=== PATIENT | male | born 1955 | race Caucasian/White ===

== ENCOUNTER → 2019-07-27 10:43 | Outpatient (BNVA) | payer OTHER, SELFPAY | PROVIDERS: Family Provider Nurse Practitioner Family; PCP Nurse Practitioner Family; Visit Provider Registered Nurse | DX: I10 Essential (primary) hypertension (principal); E11.9 Type 2 diabetes mellitus without complications; B36.0 Pityriasis versicolor; E78.5 Hyperlipidemia, unspecified | CPT/HCPCS: 80053; 80061; 82044; 83036; 85025 ==

== ENCOUNTER → 2020-04-22 09:28 | Outpatient (BNVA) | payer OTHER, SELFPAY | PROVIDERS: Family Provider Nurse Practitioner Family; PCP Nurse Practitioner Family; Visit Provider Registered Nurse | DX: E11.9 Type 2 diabetes mellitus without complications (principal); I10 Essential (primary) hypertension; R46.89 Other symptoms and signs involving appearance and behavior | CPT/HCPCS: 80053; 80061; 83036; 85025 ==

== ENCOUNTER → 2020-07-23 13:15 | Outpatient (BNVA) | payer OTHER, SELFPAY | PROVIDERS: Family Provider Nurse Practitioner Family; PCP Registered Nurse; Visit Provider Registered Nurse | DX: I10 Essential (primary) hypertension (principal) | CPT/HCPCS: 83036 ==

== ENCOUNTER → 2021-07-30 09:40 | Outpatient (BNVA) | payer OTHER, SELFPAY | PROVIDERS: Family Provider Nurse Practitioner Family; PCP Registered Nurse; Visit Provider Registered Nurse | DX: E11.9 Type 2 diabetes mellitus without complications (principal); I10 Essential (primary) hypertension; E78.5 Hyperlipidemia, unspecified; Z12.11 Encounter for screening for malignant neoplasm of colon | CPT/HCPCS: 80053; 80061; 83036; 85025 ==

== ENCOUNTER 2021-10-09 06:55 | Day surgery (SDC) | payer OTHER, SELFPAY ==
[2021-10-09 07:20] VITALS: BP 165/98; PULSE 75; RESP 18; TEMP 36.6; O2SAT 97; BMI 32.2
[2021-10-09] MEDS: sodium chloride 0.9% 1,000 ML 30 ML IV (07:27)
--- NOTE | 2021-10-09 08:13 | ANES.PREANE2 ---
Pre-Anesthetic Assessment Height/Weight: Height 1.7 m Weight 93.44 kg Temp Pulse Resp BP Pulse Ox 97.8 F 75 18 165/98 97 10/09/21 07:20 10/09/21 07:20 10/09/21 07:20 10/09/21 07:20 10/09/21 07:20 Operation Date: 10/09/21 08:45 Proposed Procedures p Colonoscopy 44926,Z12.11(Not Applicable) - Frank Galaviz DO Familial anesthetic complications: none Was Beta Kelsey taken within 24 hours: N/A Was Clonidine taken within 24 hours: N/A Last intake: Intake Last Liquid Date 10/08/21 Last Liquid Time 22:00 Last Solid Date 10/07/21 Last Solid Time 20:00 Social Alcohol and No tobacco Exam alert, oriented x 3, clear to auscultation bilaterally and regular rate & rhythm Airway Submandibular: within normal limits Cervical ROM: within normal limits Mallampati: Class II CV/HEM Hypertension Metabolic Diabetes Mellitus and Morbid Obesity Anesthetic Plan ASA status: 2 Anesthesia: MAC Medications/Allergies Home Medications Medication Instructions Recorded Confirmed Last Taken Type selenium sulfide 2.5 % lotion 2.3 % TOPICAL .once a week #118 ml 07/27/19 10/09/21 Unknown Rx epinephrine 0.3 mg/0.3 mL 0.3 mg (0.3 mL) IM Q10M PRN #2 ea 10/23/20 10/09/21 Unknown Rx injection, auto-injector (EpiPen 2-Navneet) fenofibrate nanocrystallized 145 145 mg PO DAILY 90 Days #90 tab 07/30/21 10/09/21 Unknown Rx mg tablet (Tricor) lisinopril 20 See Rx Instructions .ROUTE 07/30/21 10/09/21 10/08/21 Rx mg-hydrochlorothiazide 12.5 mg .COMPLEX #90 tab tablet metformin 1,000 mg tablet 1,000 mg PO DAILY 90 Days #90 tab 07/30/21 10/09/21 10/08/21 Rx semaglutide 1 mg/dose (2 mg/1.5 0.5 mg SUBCUT DIRECTED 10/07/21 10/09/21 10/01/21 History mL) subcutaneous pen injector Allergies Allergy/AdvReac Type Severity Reaction Status Date / Time grass pollen Allergy eyes itch/ Verified 10/07/21 12:38 sneezing venom-wasp Allergy swelling Verified 10/07/21 12:38 [facility] Anesthesia Medical History Essential hypertension Non-compliant behavior Type 2 diabetes mellitus without complication Surgical History (Updated 08/27/21 @ 10:20 by Frank Galaviz DO) History of colonoscopy Social History Smoking and tobacco status: never smoked Alcohol intake: current Alcohol intake frequency: 3 or more drinks per day Alcohol type: beer Adopted: No Caregiver/support person: No Lives independently: No Household members: spouse Marital status: Current occupational status: employed Sexually active: Yes Current gender identity: Male Data Anesthesia Cardiac Studies: No Data to Display
--- NOTE | 2021-10-09 09:31 | P.HP_ITS ---
Providers/Chief Complaint Primary Care Provider: TANESHA Barajas Chief Complaint: Need for screening colonoscopy History of Present Illness Inderjit Farrell is a 65 year old male who presents for a screening colonoscopy. He denies any abdominal complaints. His last colonoscopy was 12 years ago and was within normal limits reportedly. This is an updated H&P Review of Systems General: Reports: 10 or more systems reviewed and unremarkable except in HPI and below Medications/Allergies Home Medications Medication Instructions Recorded Confirmed Last Taken Type selenium sulfide 2.5 % lotion 2.3 % TOPICAL .once a week #118 ml 07/27/19 10/09/21 Unknown Rx epinephrine 0.3 mg/0.3 mL 0.3 mg (0.3 mL) IM Q10M PRN #2 ea 10/23/20 10/09/21 Unknown Rx injection, auto-injector (EpiPen 2-Navneet) fenofibrate nanocrystallized 145 145 mg PO DAILY 90 Days #90 tab 07/30/21 10/09/21 Unknown Rx mg tablet (Tricor) lisinopril 20 See Rx Instructions .ROUTE 07/30/21 10/09/21 10/08/21 Rx mg-hydrochlorothiazide 12.5 mg .COMPLEX #90 tab tablet metformin 1,000 mg tablet 1,000 mg PO DAILY 90 Days #90 tab 07/30/21 10/09/21 10/08/21 Rx semaglutide 1 mg/dose (2 mg/1.5 0.5 mg SUBCUT DIRECTED 10/07/21 10/09/21 10/01/21 History mL) subcutaneous pen injector Allergies Allergy/AdvReac Type Severity Reaction Status Date / Time grass pollen Allergy eyes itch/ Verified 10/07/21 12:38 sneezing venom-wasp Allergy swelling Verified 10/07/21 12:38 PFSH Acute PFSH: Medical History Essential hypertension Non-compliant behavior Type 2 diabetes mellitus without complication Surgical History History of colonoscopy Social History Smoking and tobacco status: never smoked Alcohol intake: current Alcohol intake frequency: 3 or more drinks per day Alcohol type: beer Adopted: No Caregiver/support person: No Lives independently: No Household members: spouse Marital status: Current occupational status: employed Sexually active: Yes Current gender identity: Male Vitals/I&O/Wt Last Vital Signs Temp 97.8 F 10/09/21 07:20 Pulse 75 10/09/21 07:20 Resp 18 10/09/21 07:20 BP 165/98 10/09/21 07:20 Pulse Ox 97 10/09/21 07:20 Weight last 48 hrs Weight 206 lb Physical Exam Narrative: General : Patient is well developed , no acute distress, oriented x3 Head : Normal cephalic, a-traumatic. Ears : Pinnae and external canal are normal. Hearing is normal. Eyes : PERRLA, Sclera and injection are normal. No conjunctival discharge. Nose : Mucous membranes are without erythema. Throat : buccal mucosa is normal, gums are without significant recession or hypertrophy. Lungs : Equal chest rise bilaterally, no use of accessory muscles, trachea is midline. Cor : Rate and rhythm are normal. Abdomen : Soft, ND, NT, no g/r/m Extremities : No edema, no cyanosis or clubbing, dorsalis pedis pulses are present bilaterally, non-tender to palpation of calves. Upper extremities are normal bilaterally. Back : non-tender to palpation, no CVA tenderness. Neuro : CN II - XII intact, Upper and lower extremities have equal and full strength A&P Assessment and plan (1) Encounter for screening colonoscopy: Status: Acute Plan Colonoscopy The risks and benefits of the procedure, including bleeding, infection, intestinal perforation requiring surgery, missed lesion, or explained to the patient. He is understanding of the risks and wishes to proceed. 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
[2021-10-09 10:11] VITALS: BP 128/87; PULSE 95; RESP 18; TEMP 36.1; O2SAT 93
[2021-10-09 10:26] VITALS: BP 140/96; PULSE 95; RESP 18; O2SAT 96
--- NOTE | 2021-10-09 16:15 | ANE.PACU2 ---
Inpatient post-anesthesia follow up: Airway intact: Yes Vital signs: Temperature 97.0 F Pulse Rate 95 Respiratory Rate 18 Blood Pressure 140/96 Pulse Oximetry 96 Oxygen Delivery Me thod Room Air Oxygen Flow Rate Fraction of Inspir ed Oxygen Hydration adequate: Yes Nausea and vomiting: No Pain level: 1 Mental status: Baseline
== END 2021-10-09 10:39 | disposition home or self-care (01) ==
PROVIDERS: PCP Registered Nurse; Visit Provider Surgery
PROC: 0DJD8ZZ Inspection of Lower Intestinal Tract, Via Natural or Artificial Opening Endoscopic (ICD-10-PCS; CPT 45378; principal; 2021-10-09 08:45)
DX: Z12.11 Encounter for screening for malignant neoplasm of colon (principal); I10 Essential (primary) hypertension; E11.9 Type 2 diabetes mellitus without complications; E66.01 Morbid (severe) obesity due to excess calories; Z68.32 Body mass index [BMI] 32.0-32.9, adult
CPT/HCPCS: 45378; J2704; J7030

== ENCOUNTER → 2022-01-27 09:56 | Outpatient (BNVA) | payer OTHER, SELFPAY | PROVIDERS: PCP Registered Nurse; Visit Provider Registered Nurse | DX: E11.9 Type 2 diabetes mellitus without complications (principal); I10 Essential (primary) hypertension | CPT/HCPCS: 80053; 83036; 85025 ==

== ENCOUNTER → 2022-08-21 10:42 | Outpatient (BNVA) | payer OTHER, SELFPAY | PROVIDERS: PCP Registered Nurse; Visit Provider Registered Nurse | DX: E11.9 Type 2 diabetes mellitus without complications (principal); I10 Essential (primary) hypertension | CPT/HCPCS: 80053; 80061; 82043; 83036; 85025 ==

== ENCOUNTER → 2023-04-27 08:44 | Outpatient (BNVA) | payer MEDICARE, SELFPAY | PROVIDERS: PCP Registered Nurse; Visit Provider Registered Nurse | DX: I10 Essential (primary) hypertension (principal); E11.9 Type 2 diabetes mellitus without complications | CPT/HCPCS: 80053; 80061; 83036; 85025 ==

== ENCOUNTER → 2023-12-20 09:16 | Outpatient (BNVA) | payer MEDICARE, SELFPAY | PROVIDERS: PCP Registered Nurse; Visit Provider Registered Nurse | DX: E11.9 Type 2 diabetes mellitus without complications (principal) | CPT/HCPCS: 80048; 80053; 80061; 83036; 85025 ==

== ENCOUNTER 2024-04-19 15:05 | Outpatient (CLI) | payer MEDICARE, SELFPAY | END 2024-04-19 15:06 | disposition home or self-care (01) | LOC: SLEEP 15:06 | PROVIDERS: PCP Registered Nurse; Visit Provider Registered Nurse | DX: G47.33 Obstructive sleep apnea (adult) (pediatric) (principal); G47.36 Sleep related hypoventilation in conditions classified elsewhere | CPT/HCPCS: G0399 ==

== ENCOUNTER → 2024-06-13 09:09 | Outpatient (BNVA) | payer MEDICARE, SELFPAY | PROVIDERS: PCP Registered Nurse; Visit Provider Registered Nurse | DX: E11.9 Type 2 diabetes mellitus without complications (principal) | CPT/HCPCS: 80061; 83036 ==

== ENCOUNTER → 2025-01-24 10:17 | Outpatient (BNVA) | payer MEDICARE, SELFPAY | PROVIDERS: PCP Registered Nurse; Visit Provider Registered Nurse | DX: E11.9 Type 2 diabetes mellitus without complications (principal) | CPT/HCPCS: 80053; 83036 ==